=== PATIENT | female | born 1955 | race Caucasian/White ===

== ENCOUNTER → 2018-04-21 | Outpatient (CLI) | payer OTHER ==
--- NOTE | 2018-04-21 16:06 | RADIOLOGY REPORT (SQ) ---
EXAM DESCRIPTION: BARIUM SWALLOW ESOPHAGUS COMPLETED DATE/TIME: 04/21/2018 10:08 am REASON FOR STUDY: Dysphagia, unspecified R13.10 DYSPHAGIA, UNSPECIFIED COMPARISON: None. TECHNIQUE: Under fluoroscopic guidance, patient ingested effervescent granules followed by thick and thin barium. Fluoroscopic spot images and routine radiographic images acquired and stored on PACS. 12 MM BARIUM TABLET GIVEN: The patient swallowed a 12 mm barium tablet which passed easily through th e esophagus and into the stomach without delay. LIMITATIONS: None. FLUOROSCOPY TIME: FLUORO TIME: 1.1 minutes 9 images saved to PACS. FINDINGS: NEUROMUSCULAR COORDINATION OF SWALLOW: Normal. No aspiration. ESOPHAGEAL MOTILITY: Normal peristalsis. No esophageal spasm. ESOPHAGEAL MUCOSA: Normal mucosa without masses or ulceration. GASTRO-ESOPHAGEAL JUNCTION: There is a hiatal hernia present involving the fundus of the stomach. Ga stroesophageal reflux was seen during the study, to the level of the clavicles. NON-GI TRACT STRUCTURES: No significant finding. OTHER: No other significant finding. IMPRESSION: HIATAL HERNIA INVOLVING THE FUNDUS. GASTROESOPHAGEAL REFLUX. RECOMMENDATION: None COMMENT: None Quality ID [id number]: Final reports for procedures using fluoroscopy that document radiation exposure al brynn, or exposure time and number of fluorographic images (if radiation exposure indices are not avail able) TECHNICAL DOCUMENTATION: JOB ID: [id number] [employer]- All Rights Reserved Reading location - IP/workstation name: [id number]
== END ==
LOC: RAD 09:27
PROVIDERS: ATTEND Surgery
DX: K21.9 Gastro-esophageal reflux disease without esophagitis (principal); K44.9 Diaphragmatic hernia without obstruction or gangrene; R13.10 Dysphagia, unspecified
CPT/HCPCS: 74220

== ENCOUNTER 2018-05-15 05:19 | Day surgery (SDC) | payer OTHER ==
[2018-05-08 10:57] LABS: ABSOLUTE EOSINOPHILS # (AUTO) 0.1 10^3/uL (0.0-0.6); ABSOLUTE LYMPHOCYTES (AUTO) 1.6 10^3/uL (0.5-4.7); ABSOLUTE MONOCYTES (AUTO) 0.6 10^3/uL (0.1-1.4); BASOPHILS % (AUTO) 0.5 % (0-2); EOSINOPHILS % (AUTO) 1.3 % (0-6); HEMATOCRIT 41.4 % (36.0-47.0); HEMOGLOBIN 14.1 g/dL (12.0-15.5); LYMPHOCYTES % (AUTO) 30.2 % (13-45); MEAN CORPUSCULAR VOLUME 88 fl (80-97); PLATELET COUNT 271 10^3/uL (150-450); RED CELL DISTRIBUTION WIDTH 14.3 % (11.5-14.0); TOTAL CELLS COUNTED % (AUTO) 100 %; WHITE BLOOD COUNT 5.2 10^3/uL (4.0-10.5)
[2018-05-08 12:01] LABS: ANION GAP 11 (5-19); BLOOD UREA NITROGEN 14 mg/dL (7-20); CALCIUM 9.8 mg/dL (8.4-10.2); CARBON DIOXIDE 27 mmol/L (22-30); CHLORIDE 105 mmol/L (98-107); GLUCOSE 88 mg/dL (75-110); POTASSIUM 4.6 mmol/L (3.6-5.0); SODIUM 142.7 mmol/L (137-145)
--- NOTE | 2018-05-08 14:23 | EKG REPORT ---
SEVERITY:- BORDERLINE ECG - SINUS RHYTHM NONSPECIFIC ST-T CHANGES ANTERIOR LEADS. : Confirmed by: Justice Cheung MD 08-May-2018 14:23:03
[~2018-05-15 05:19] MED LIST: LACTATED RINGERS 1000 ML IV PRN; LIDOCAINE 0.5% INJ-PF (5 MG/ML) 50 ML SDV SUBCUT PRN
[2018-05-15] MEDS ORDERED: PROPOFOL INJ 200 MG/20 ML VIAL IV ONE (06:57)
[2018-05-15] MEDS ORDERED: FENTANYL CITRATE INJ/PF 100 MCG/2 ML AMPUL ONE (06:57)
[2018-05-15] MEDS ORDERED: LIDOCAINE 1% INJ-PF (10 MG/ML) 30 ML SDV ONE (06:59)
[2018-05-15 09:14] VITALS: BP 132/81
--- NOTE | 2018-05-15 11:04 | OPERATIVE REPORT E ---
Operative Report NAME: AKI OLIVARES : 1955 AGE: 63Y DATE OF SURGERY: 05/15/2018 ROOM: PREOPERATIVE DIAGNOSIS: 1. HIATAL HERNIA. 2. ABDOMINAL DISCOMFORT. POSTOPERATIVE DIAGNOSIS: 1. SEVERE GASTRITIS WITH SHALLOW GASTRIC ULCERS. 2. GASTRIC BODY POLYP. 3. DUODENITIS. 4. LARGE HIATAL HERNIA. 5. MILD REFLEX ESOPHAGITIS. OPERATION: ESOPHAGOGASTRODUODENOSCOPY WITH MULTIPLE BIOPSY. SURGEON: BENEDICT DELGADO M.D. ANESTHESIA: Moderate sedation. LMAC DRAINS/IMPLANTS: None. FLUIDS: See anesthesia record. ESTIMATED BLOOD LOSS: Minimal. SPECIMENS: 1. Duodenal bulb. 2. Antrum. 3. Gastric body polyp. 4. Distal esophagus. PROCEDURE: After informed consent was obtained, the patient was laid in the left lateral decubitus position in the operating room. The endoscope was passed down the oropharynx, down the esophagus, and into the stomach. The stomach was insufflated with air. Immediately there was noted to be gastritis throughout the body and antrum of the stomach. There were shallow gastric ulcerations in the stomach at the antrum. The scope was pushed through the pylorus into the first and second portions of the duodenum. The first portion of the duodenum appeared inflamed, however, the second portion was normal. The scope was pulled back into the duodenal bulb where a biopsy was taken at the point of maximal inflammation. The scope was withdrawn into the antrum where biopsy was taken at the antral ulceration. The scope was then brought into the gastric body. Multiple small hyperplastic appearing gastric polyps were identified. One of these was biopsied and sent for pathology. A retroflexion maneuver was then performed, noting a very large hiatal hernia. The scope was pulled up into the hiatal hernia. No ulcerations could be identified within the hiatal hernia. The scope was then pulled up into the distal esophagus. There was a mild amount of reflux esophagitis present. Biopsy was taken at the distal esophagus. The scope was then withdrawn up the remainder of the esophagus. The remainder of the esophagus was smooth in contour without masses, lesions, ulcerations, or other abnormalities. The scope was then removed from the oropharynx and the procedure was concluded. All sponge, instrument, and needle counts were x2. COMPLICATIONS: None apparent. CONDITION: Stable. DICTATING PHYSICIAN: BENEDICT DELGADO. Betty [id number] PHY#: [id number] ID: [id number] JOB#: [id number] ACCT: [id number] cc:BENEDICT DELGADO M.D. > DAVE
--- NOTE | 2018-05-22 08:36 | Discharge Summary ---
Discharge Summary (SDC) - Discharge Final Diagnosis: gastritis, ulcers, hiatal hernia Condition: Stable Treatment or Instructions: followup 2 weeks Referrals: FILIPE AYALA MD [Primary Care Provider] - Discharge Diet: As Tolerated Respiratory Treatments at Home: Deep Breathing/Coughing, Incentive Spirometer Discharge Activity: Activity As Tolerated Home Care Assistance: None Needed Report the Following to Your Physician Immediately: Shortness of Breath, Nausea , Vomiting, Increase in Pain, Fever over 101 Degrees, Unusual Bleeding, Redness , Swelling, Warmth
== END 2018-05-15 08:50 | disposition home or self-care (01) ==
LOC: OROUT 05:19
PROVIDERS: ATTEND Surgery
DX: K44.9 Diaphragmatic hernia without obstruction or gangrene (principal); K29.20 Alcoholic gastritis without bleeding; K29.80 Duodenitis without bleeding; K21.0 Gastro-esophageal reflux disease with esophagitis; E78.00 Pure hypercholesterolemia, unspecified; R73.03 Prediabetes; M19.90 Unspecified osteoarthritis, unspecified site; K31.7 Polyp of stomach and duodenum; K25.9 Gastric ulcer, unspecified as acute or chronic, without hemorrhage or perforation; I20.9 Angina pectoris, unspecified; Z88.2 Allergy status to sulfonamides; Z87.828 Personal history of other (healed) physical injury and trauma
CPT/HCPCS: 43239; 93005; 36415; 82962; 85025; 80048; 88342 ×2; 88305 ×2; 93010; J3010; J3490; J2704; 731